=== PATIENT | male | born 1995 | race Caucasian/White ===

== ENCOUNTER 2019-11-02 19:56 | Emergency (ER) | payer OTHER ==
[~2019-11-02] VITALS: Ht 167.6 cm; Wt 59.1 kg
[2019-11-02] MEDS ORDERED: NEURAPTINE30 GM TP (20:19)
[2019-11-02] MEDS ORDERED: DEPAKOTE ER 50500 MG PO (20:20)
[2019-11-02] MEDS ORDERED: DESYREL50 MG (20:20)
[2019-11-02] MEDS ORDERED: NEURONTIN300 M1 PO (20:45)
[2019-11-02] MEDS ORDERED: PROZAC10 M2 PO (21:35)
[2019-11-02] MEDS ORDERED: NORCO 325 MG-51 TA1 PO (21:45)
[2019-11-02 21:48] VITALS: BP 120/78
== END 2019-11-02 21:59 | disposition home or self-care (01) ==
LOC: ED 19:56
DX: M54.5 Low back pain (principal); G89.29 Other chronic pain; Z88.6 Allergy status to analgesic agent; W01.0XXA Fall on same level from slipping, tripping and stumbling without subsequent striking against object, initial encounter; Y99.0 Civilian activity done for income or pay
CPT/HCPCS: J1885; J2360

== ENCOUNTER 2020-04-16 17:02 | Emergency (ER) | payer OTHER ==
[~2020-04-16 17:02] MED LIST: DEPAKOTE ER 50500 MG PO; DESYREL50 MG PO; NEURAPTINE30 GM TP; NEURONTIN300 M1 PO; NORCO 325 MG-51 TA1 PO; PROZAC10 M2 PO
[2020-04-16] MEDS ORDERED: CLARITIN 1010 MG/TAB PO (17:50)
[2020-04-16 18:28] LABS: BASO # 0.1 (0.02-0.10); EOS # 0.2 (0.04-0.40); EOS % 2.7 % (0.0-4.0); HEMATOCRIT 47.6 % (42.0-52.0); HEMOGLOBIN 16.1 g/dL (13.5-18.0); LYMPH# 1.5 (1.50-4.00); MEAN CELL VOLUME 85 fl (78-100); MEAN CORPUSCULAR HEMOGLOBIN 29 pg (27-31); MEAN CORPUSCULAR HGB CONC 34 g/dL (33-37); MEAN PLATELET VOLUME 9.7 fl (7.4-10.4); MONO # 0.7 (0.20-0.80); NEU # 5.1 (1.40-6.50); PLATELET COUNT 284 K/mm3 (130-400); RED BLOOD COUNT 5.61 M/mm3 (4.20-5.60); RED CELL DISTRIBUTION WIDTH 13.6 % (11.5-14.5); WHITE BLOOD COUNT 7.5 K/mm3 (4.8-10.8)
[2020-04-16 18:33] LABS: ALBUMIN 4.8 g/dL (3.5-5.0); POTASSIUM 4.5 mmol/L (3.5-5.1); SODIUM 142 mmol/L (136-145)
[2020-04-16 18:34] LABS: CALCIUM 10.1 mg/dL (8.3-10.5)
[2020-04-16 18:35] LABS: GLUCOSE 75 mg/dL (75-110)
[2020-04-16 18:36] LABS: TOTAL PROTEIN 8.1 g/dL (6.4-8.3)
[2020-04-16 18:37] LABS: CARBON DIOXIDE 27 mmol/L (22-29); TOTAL BILIRUBIN 0.9 mg/dL (0.2-1.2)
[2020-04-16 18:41] LABS: AST-SGOT 17 U/L (5-34)
[2020-04-16 18:42] LABS: ALT/SGPT 10 U/L (0-55)
[2020-04-16 18:48] LABS: ACETAMINOPHEN < 1 ug/mL; ALCOHOL IN-HOUSE < 10 mg/dL (<10)
[2020-04-17 12:30] VITALS: BP 114/68
== END 2020-04-17 12:30 ==
LOC: ED 17:02
PROVIDERS: Physician Assistant
DX: R45.851 Suicidal ideations (principal); E05.90 Thyrotoxicosis, unspecified without thyrotoxic crisis or storm; F19.10 Other psychoactive substance abuse, uncomplicated; F32.9 Major depressive disorder, single episode, unspecified; F41.9 Anxiety disorder, unspecified; F17.210 Nicotine dependence, cigarettes, uncomplicated